=== PATIENT | male | born 1940 | race Caucasian/White ===

== ENCOUNTER → 2018-06-29 | Outpatient (CLI) | payer MEDICARE ==
[~2018-06-29] MED LIST: IBUP100O25 PO; PRED20TA PO; VENL75TA PO
--- NOTE | 2018-06-29 11:12 | KCIC ---
Examination: MRI of the right shoulder without contrast HISTORY: History of right shoulder pain for 6 months COMPARISON: None available Technique: Multiplanar, multisequence MR imaging of the right shoulder were performed without contrast. FINDINGS: The long head of the biceps tendon is within the bicipital groove. The attachment of the subscapularis tendon is intact with mild increased signal in the subscapularis tendon likely tendinosis. There is increased T2 signal identified in the undersurface fibers of the supraspinatus tendon measuring 1 cm likely high-grade partial tear with extension of fluid into the subacromial /subdeltoid bursa. There is moderate increased signal identified in the infraspinous tendon likely tendinosis. There is mild diffuse increased signal identified throughout the labrum likely due to degeneration. There is diffuse cartilage identified in the glenohumeral joint likely chondromalacia. Moderate degenerative changes acromioclavicular joint. The inferior aspect of the acromion and clavicle demonstrate a small osteophyte formation abutting the supraspinatus tendon. Mild fatty infiltration of the supraspinatus, infraspinatus muscles. Fat is present within the rotator cuff interval. Moderate degenerative changes identified in the AC joint. IMPRESSION: 1. A 1 cm high T2 signal identified in the undersurface fibers of the supraspinatus tendon likely high-grade partial tear with minimal extension of fluid into the subacromial subdeltoid bursa. 2. Moderate tendinosis of the supraspinatus, infraspinatus and the subscapularis tendons. 3. Moderate degenerative changes, AC joint and the glenohumeral joint. Small inferior osteophyte formation identified in the distal clavicle and the acromion abutting the supraspinatus tendon. Correlate for impingement. 4. Chondromalacia glenohumeral joint. Electronically signed by: Mk Stephenson MD (06/29/2018 11:08 AM) [id number]
== END | disposition home or self-care (01) ==
LOC: KCIC MRI 09:16
DX: M94.211 Chondromalacia, right shoulder (principal); M25.711 Osteophyte, right shoulder; M19.011 Primary osteoarthritis, right shoulder; M75.81 Other shoulder lesions, right shoulder
CPT/HCPCS: 73221

== ENCOUNTER → 2021-01-09 | Outpatient (CLI) | payer MEDICARE ==
[~2021-01-09] MED LIST changes: +IBUP-1815 PO; -IBUP100O25 PO
--- NOTE | 2021-01-09 11:17 | KCIC ---
CT HEAD INDICATION: Reason: Memory changes, dizziness. COMPARISON: None Available. Exposure: One or more of the following individualized dose reduction techniques were utilized for thi s examination: 1. Automated exposure control 2. Adjustment of the mA and/or kV according to patient size 3. Use of iterative reconstruction technique TECHNIQUE: 5 mm contiguous axial images were obtained from the skull base to the vertex in both bone and soft tissue algorithm. FINDINGS: Mild bilateral periventricular white matter hypodensities likely chronic small vessel ischemic diseas e. No evidence of acute intracranial hemorrhage. No extra-axial fluid collections. No mass effect or midline shift. Ventricular size is appropriate. Basal cisterns are patent. No fractures identified.Solares-white differentiation is preserved.Globes and orbits are within normal l imits. Paranasal sinuses and mastoid air cells are clear. IMPRESSION: No acute intracranial findings. Electronically signed by: Mk Stephenson MD (01/09/2021 11:15 AM) [id number]
== END ==
LOC: KCIC CT 10:41
PROVIDERS: ATTEND Family Medicine
DX: R41.3 Other amnesia (principal); R42 Dizziness and giddiness
CPT/HCPCS: 70450